=== PATIENT | female | born 1990 | race Two or more races ===

== ENCOUNTER 2016-06-27 11:13 | Inpatient (IN) | payer OTHER ==
[2016-06-27 12:20] VITALS: BMI 24.7
--- NOTE | 2016-06-27 15:55 | HP ---
COWS - Scale Resting Pulse: 1= [place] [id number] Sweatin=Flushed/Facial Moisture Restless Observation: 1= Difficult to Sit Still Pupil Size: 0= Normal to Room Light Bone or Joint Aches: 2= Severe Diffuse Aches Runny Nose/ Eye Tearin= Runny Nose/Eyes GI Upset > 30mins: 2= Nausea/Diarrhea Tremor Observation: 2= Slight Tremor Visible Yawning Observation: 2= >3x During Session Anxiety or Irritability: 2=Irritable/Anxious Goose Flesh Skin: 3=Piloerection COWS Score: 19 Admission ROS BHS - HPI Chief Complaint: I want to get cleaned and focus on my life and stay sober. Allergies/Adverse Reactions: Allergies Allergy/AdvReac Type Severity Reaction Status Date / Time No Known Allergies Allergy Verified 06/27/16 15:44 History of Present Illness: Pt is a25yr old female with a history of opiate dependence seeking detox for treatment. Exam Limitations: No Limitations - Ebola screening Have you traveled outside of the country in the last 21 days: No Have you had contact with anyone from an Ebola affected area: No Have you been sick,other than usual withdrawal symptoms: No Do you have a fever: No - Review of Systems Constitutional: Chills, Diaphoresis, Loss of Appetite, Night Sweats, Changes in sleep EENT: reports: Tearing, Nose Congestion Respiratory: reports: No Symptoms reported Cardiac: reports: No Symptoms Reported GI: reports: Diarrhea, Poor Appetite : reports: No Symptoms Reported Musculoskeletal: reports: Back Pain, Muscle Weakness Integumentary: reports: Flushing, Sweating Neuro: reports: Headache, Tingling, Tremors Endocrine: reports: Flushing, Intolerance to Heat Hematology: reports: No Symptoms Reported Psychiatric: reports: Judgement Intact, Mood/Affect Appropiate, Orientated x3, Agitated, Anxious, Depressed Other Systems: Reviewed and Negative Patient History - Patient Medical History Hx Anemia: No Hx Asthma: No Hx Chronic Obstructive Pulmonary Disease (COPD): No Hx Cancer: No Hx Cardiac Disorders: No Hx Congestive Heart Failure: No Hx Hypertension: No Hx Hypercholesterolemia: No Hx Pacemaker: No HX Cerebrovascular Accident: No Hx Seizures: No Hx Diabetes: No Hx Gastrointestinal Disorders: No Hx Liver Disease: No Hx Genitourinary Disorders: No Hx Sexually Transmitted Disorders: No Hx Renal Disease (ESRD): No Hx Thyroid Disease: No Hx Human Immunodeficiency Virus (HIV): No (negative) Hx Hepatitis C: No (negative) Hx Depression: Yes (ANXIETY) Hx Suicide Attempt: No Hx Bipolar Disorder: No Hx Schizophrenia: No - Patient Surgical History Past Surgical History: No Hx Neurologic Surgery: No Hx Cataract Extraction: No Hx Cardiac Surgery: No Hx Lung Surgery: No Hx Breast Surgery: No Hx Breast Biopsy: No Hx Abdominal Surgery: No Hx Appendectomy: No Hx Cholecystectomy: No Hx Genitourinary Surgery: No Hx Section: No Hx Orthopedic Surgery: No Hx Hysterectomy: No Anesthesia Reaction: No - PPD History Date: 04/11/15 PPD to be Administered?: Yes - Reproductive History Patient is a Female of Child Bearing Age (11 -55 yrs old): Yes Last Menstrual Period: 06/20/16 Patient : No - Smoking Cessation Smoking history: Current every day smoker Have you smoked in the past 12 months: Yes Aproximately how many cigarettes per day: 4 Hx Chewing Tobacco Use: No Initiated information on smoking cessation: Yes 'Breaking Loose' booklet given: 06/27/16 - Substance & Tx. History Hx Alcohol Use: No Hx Substance Use: Yes Substance Use Type: Opiates Hx Substance Use Treatment: Yes - Substances Abused Percocet Route: Oral Frequency: Daily Amount used: 7 tabs. (10 mg.) Age of first use: 23 Date of Last Use: 06/26/16 Family Disease History - Family Disease History Family Disease History: Heart Disease: Father (POSSIBLE), Mother (UNCERTAIN) Admission Physical Exam BHS - Vital Signs Vital Signs: Vital Signs - 24 hr 06/27/16 12:19 Temperature 99.9 F H Pulse Rate 83 Respiratory 16 Rate Blood Pressure 126/71 - Physical General Appearance: Yes: Appropriately Dressed, Tremorous, Irritable, Sweating, Anxious HEENTM: Yes: Normal Voice, Nasal Congestion, Rhinorrhea Respiratory: Yes: Lungs Clear, Normal Breath Sounds, No Respiratory Distress Neck: Yes: No masses,lesions,Nodules Breast: Yes: Within Normal Limits Cardiology: Yes: Regular Rhythm, Regular Rate, S1, S2 Abdominal: Yes: Normal Bowel Sounds Genitourinary: Yes: Within Normal Limits Back: Yes: Normal Inspection Musculoskeletal: Yes: full range of Motion, Back pain Extremities: Yes: Normal Capillary Refill, Non-Tender, Tremors 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: Fully Oriented, Alert, Normal Response Integumentary: Yes: Normal Color, Diaphoresis Lymphatic: Yes: Within Normal Limits - Diagnostic (1) Opioid dependence with withdrawal Current Visit: Yes Status: Chronic (2) Nicotine dependence Current Visit: Yes Status: Chronic Qualifiers: Nicotine product type: cigarettes Substance use status: uncomplicated Qualified Code(s): F17.210 - Nicotine dependence, cigarettes, uncomplicated (3) Substance-induced anxiety disorder Current Visit: Yes Status: Chronic (4) Drug-induced mood disorder Current Visit: No Status: Suspected Cleared for Admission [facility] - Detox or Rehab [facility] Level of Care: Medically Managed Detox Regimen/Protocol: Methadone [facility] Breath Alcohol Content Breath Alcohol Content: 0 Urine Pregancy Test - Result Urine Test Results: Negative- NO Line Present Urine Drug Screen - Results Drug Screen Negative: No Urine Drug Screen Results: OXY-Oxycodone
[2016-06-27] MEDS ORDERED: guaiFENesin/D-METHORPHAN HB 10 ML UNIT-DOSE CUPS PO PRN (16:00)
[2016-06-27] MEDS ORDERED: P-EPHED 60MG/TRIPROLIDI 2.5MG TABLET PO PRN (16:00)
[2016-06-27] MEDS ORDERED: IBUPROFEN 400 MG TABLET (FP) PO PRN (16:00)
[2016-06-27] MEDS ORDERED: LOPERAMIDE HCL 2 MG CAPSULE PO PRN (16:00)
[2016-06-27] MEDS ORDERED: ACETAMINOPHEN 325 MG TABLET (FP) PO PRN (16:00)
[2016-06-27] MEDS ORDERED: METHADONE HCL 10 MG TABLET (FOR DETOX USE ONLY) PO ONE ×2 (16:00→23:00)
[2016-06-27] MEDS ORDERED: MENTHOL/PHENOL 1 EACH UD MM PRN (16:00)
[2016-06-27] MEDS ORDERED: MAG HYDROX/AL HYDROX/SIMETH 30 ML UNIT-DOSE CUP PO PRN (16:00)
[2016-06-27] MEDS ORDERED: MAGNESIUM HYDROX 2400MG/30ML ORAL SUSPENSION 30 ML CUP PO PRN (16:00)
[2016-06-27] MEDS ORDERED: MAGNESIUM CITRATE 300 ML BOTTLE PO PRN (16:00)
[2016-06-27] MEDS ORDERED: METHADONE HCL 10 MG TABLET (FOR DETOX USE ONLY) ONE (18:05)
[2016-06-27] MEDS: diazePAM 5 MG TABLET PO PRN ×2 (18:56→23:18)
[2016-06-27] MEDS: THIAMINE HCL 100 MG TABLET (FP) PO SCH (22:24)
[2016-06-27] MEDS: diphenhydrAMINE HCL 50 MG CAPSULE PO PRN (22:24)
[2016-06-27 23:23] LABS: URINE APPEARANCE CLEAR; URINE BILIRUBIN NEGATIVE (NEGATIVE); URINE BLOOD 2+ (NEGATIVE); URINE COLOR YELLOW; URINE GLUCOSE (UA) NEGATIVE (NEGATIVE); URINE KETONE NEGATIVE (NEGATIVE); URINE LEUK ESTERASE NEGATIVE (NEGATIVE); URINE NITRITE NEGATIVE (NEGATIVE); URINE PROTEIN NEGATIVE (NEGATIVE); URINE UROBILINOGEN NEGATIVE E.U./dl (0.2-1.0)
[2016-06-27 23:27] LABS: URINE MUCUS RARE; URINE RBC 23 /hpf (0-3); URINE WBC 4 /hpf (3-5)
[2016-06-28] MEDS: diazePAM 5 MG TABLET PO PRN ×2 (07:18→19:44)
[2016-06-28] MEDS ORDERED: METHADONE HCL 10 MG TABLET (FOR DETOX USE ONLY) PO ONE (10:00)
[2016-06-28] MEDS: PRENATAL VITAMINS W/ FOLIC ACID TABLET (FP) PO SCH (10:16)
[2016-06-28] MEDS: ASPIRIN 81 MG CHEWABLE TABLETS PO SCH (10:17)
[2016-06-28] MEDS: hydrOXYzine PAMOATE 50 MG CAPSULE (FP) PO PRN (10:18)
--- NOTE | 2016-06-28 10:24 | PN ---
BHS COWS - Scale Resting Pulse: 0= [place] 80 or Below Sweatin= Chills/Flushing Restless Observation: 3= Extraneous Movement Pupil Size: 1= Pupils >than Normal Bone or Joint Aches: 2= Severe Diffuse Aches Runny Nose/ Eye Tearin= Runny Nose/Eyes GI Upset > 30mins: 3= Vomiting/Diarrhea Tremor Observation of Outstretched Hands: 2= Slight Tremor Visible Yawning Observation: 1= 1-2x During Session Anxiety or Irritability: 2=Irritable/Anxious Goose Flesh Skin: 0=Smooth Skin COWS Score: 17 BHS Progress Note (SOAP) Subjective: ALERT,IRRITABLE,ANXIOUS,PAIN IN THE BODY AND BACK,TREMOR Objective: 06/28/16 10:21 Vital Signs Temperature 98.2 F 06/28/16 10:19 Pulse Rate 72 06/28/16 10:19 Respiratory Rate 16 06/28/16 10:19 Blood Pressure 130/69 06/28/16 10:19 O2 Sat by Pulse Oximetry (%) EKG NSR WITH SINUS ARRHYTHMIA INVERTED T IN V2 NO CHEST PAIN,NO SOB,NO DIZZINESS Laboratory Last Values Urine Color Yellow 06/27/16 21:23 Urine Appearance Clear 06/27/16 21:23 Urine pH 5.0 (5.0-8.0) 06/27/16 21:23 Ur Specific [place] 1.023 (1.001-1.035) 06/27/16 21:23 Urine Protein Negative (NEGATIVE) 06/27/16 21:23 Urine Glucose (UA) Negative (NEGATIVE) 06/27/16 21:23 Urine Ketones Negative (NEGATIVE) 06/27/16 21:23 Urine Blood 2+ (NEGATIVE) H 06/27/16 21:23 Urine Nitrite Negative (NEGATIVE) 06/27/16 21:23 Urine Bilirubin Negative (NEGATIVE) 06/27/16 21:23 Urine Urobilinogen Negative E.U./dl (0.2-1.0) 06/27/16 21:23 Ur Leukocyte Esterase Negative (NEGATIVE) 06/27/16 21:23 Urine RBC 23 /hpf (0-3) 06/27/16 21:23 Urine WBC 4 /hpf (3-5) 06/27/16 21:23 Ur Epithelial Cells Moderate /hpf (FEW) 06/27/16 21:23 Urine Mucus Rare 06/27/16 21:23 LABS PENDING Assessment: 06/28/16 10:23 WITHDRAWAL SYMPTOM Plan: CONTINUE DETOX,REPEAT UA
[2016-06-28] MEDS: cloNIDine HCL 0.1 MG TABLET PO SCH ×2 (10:59→22:09)
[2016-06-28] MEDS: CYCLOBENZAPRINE HCL 10 MG TABLET (FP) PO PRN (10:59)
[2016-06-28 11:12] LABS: ALBUMIN 4.3 g/dl (3.4-5.0); ANION GAP 8 (8-16); CALCIUM 9.2 mg/dL (8.5-10.1); CO2 28 mmol/L (21-32); GLUCOSE,RANDOM 86 mg/dL (74-106); MCHC 31.5 g/dl (32.0-36.0); MEAN CELL VOLUME 85.8 fl (80-96); MEAN PLT VOLUME 10.2 fl (7.5-11.1); PLATELET COUNT 212 K/MM3 (134-434); RDW 14.8 % (11.6-15.6); WHITE BLOOD COUNT 7.1 K/mm3 (4.0-10.0)
[2016-06-28 11:16] LABS: ALK PHOS 83 U/L (45-117); BILIRUBIN,TOTAL 0.3 mg/dL (0.2-1.0); CREATININE 0.8 mg/dL (0.55-1.02); SGOT/AST 14 U/L (15-37); SGPT/ALT 18 U/L (12-78); TOT PROT 7.7 g/dl (6.4-8.2)
[2016-06-28 12:26] LABS: HIV 1 & 2 AB NEGATIVE; HIV 1 AGp24 NEGATIVE
--- NOTE | 2016-06-28 14:50 | CONSULT ---
[facility] Psychiatric Consult - Data Date of interview: 06/28/16 Admission source: [facility] Identifying data: Readmission to [facility] for this 25 y/o AA female,from [place] descent,seeking detox treatment,on ,for opiate dependence.Patient is single without children,domiciled,currently unemployed and supported by relatives. Substance Abuse History: - Smoking Cessation. Smoking history: Current every day smoker. Have you smoked in the past 12 months: Yes. Aproximately how many cigarettes per day: 4. Hx Chewing Tobacco Use: No. Initiated information on smoking cessation: Yes. 'Breaking Loose' booklet given: 06/27/16. - Substance & Tx. History. Hx Alcohol Use: No. Hx Substance Use: Yes. Substance Use Type : Opiates. Hx Substance Use Treatment: Yes. - Substances Abused. Percocet. Route: Oral. Frequency: Daily. Amount used: 7 tabs. (10 mg.). Age of first use: 23. Date of Last Use: 06/26/16. Confirmed by patient. Medical History: Patient reports good physical health. Psychiatric History: No history of psychiatric hospitalizations.Ms Rosario states that she is diagnosed with MDD and Anxiety Disorder.Prescribed seroquel 50 mg/ am + 100 mg/hs + ambien 10 mg/hs by a private psychiatrist.Reportedly took these medications on 06/26/16.Patient denies history of suicide attempts. Physical/Sexual Abuse/Trauma History: No history. Additional Comment: Urine Drug Screen Results: OXY-Oxycodone.Noted. Mental Status Exam - Mental Status Exam Alert and Oriented to: Time, Place, Person Cognitive Function: Good Patient Appearance: Well Groomed Mood: Hopeful, Euthymic Affect: Appropriate, Normal Range Patient Behavior: Fatigued, Appropriate, Cooperative Speech Pattern: Clear Voice Loudness: Normal Thought Process: Intact, Goal Oriented Thought Disorder: Not Present Hallucinations: Denies Suicidal Ideation: Denies Homicidal Ideation: Denies Insight/Judgement: Fair Sleep: Poorly, Difficulty falling asleep Appetite: Good Muscle strength/Tone: Normal Gait/Station: Normal Psychiatric Findings - Problem List ([place] 1, 2,3) (1) Opioid dependence with withdrawal Current Visit: Yes Status: Acute (2) Nicotine dependence Current Visit: Yes Status: Acute Qualifiers: Nicotine product type: cigarettes Substance use status: uncomplicated Qualified Code(s): F17.210 - Nicotine dependence, cigarettes, uncomplicated (3) Mood disorder Current Visit: Yes Status: Chronic (4) Insomnia Current Visit: Yes Status: Acute - Initial Treatment Plan Initial Treatment Plan: Psychoeducation.Detoxification.Medications : seroquel 100 mg po hs.Side effects/benefits discussed with patient.She insists on resuming seroquel because of consistent efficacy/tolerability.Observation.
[2016-06-28 16:36] LABS: URINE APPEARANCE CLEAR; URINE BILIRUBIN NEGATIVE (NEGATIVE); URINE BLOOD NEGATIVE (NEGATIVE); URINE COLOR YELLOW; URINE GLUCOSE (UA) NEGATIVE (NEGATIVE); URINE KETONE NEGATIVE (NEGATIVE); URINE LEUK ESTERASE NEGATIVE (NEGATIVE); URINE NITRITE NEGATIVE (NEGATIVE); URINE PROTEIN NEGATIVE (NEGATIVE); URINE UROBILINOGEN NEGATIVE E.U./dl (0.2-1.0)
[2016-06-28] MEDS: QUEtiapine FUMARATE 100 MG TABLET (FP) PO SCH (22:09)
[2016-06-28] MEDS: THIAMINE HCL 100 MG TABLET (FP) PO SCH (22:09)
[2016-06-29] MEDS ORDERED: METHADONE HCL 5 MG TABLET (FOR DETOX USE ONLY) PO ONE (10:00)
[2016-06-29] MEDS: PRENATAL VITAMINS W/ FOLIC ACID TABLET (FP) PO SCH (10:05)
[2016-06-29] MEDS: ASPIRIN 81 MG CHEWABLE TABLETS PO SCH (10:05)
[2016-06-29] MEDS: diazePAM 5 MG TABLET PO PRN ×4 (10:06→23:48)
[2016-06-29] MEDS: CYCLOBENZAPRINE HCL 10 MG TABLET (FP) PO PRN ×2 (10:07→22:25)
[2016-06-29] MEDS: cloNIDine HCL 0.1 MG TABLET PO SCH ×2 (10:07→22:23)
--- NOTE | 2016-06-29 11:08 | PN ---
BHS COWS - Scale Resting Pulse: 1= [place] 81-100 Sweatin=Flushed/Facial Moisture Restless Observation: 3= Extraneous Movement Pupil Size: 1= Pupils >than Normal Bone or Joint Aches: 2= Severe Diffuse Aches Runny Nose/ Eye Tearin= Nasal Congestion GI Upset > 30mins: 2= Nausea/Diarrhea Tremor Observation of Outstretched Hands: 2= Slight Tremor Visible Yawning Observation: 1= 1-2x During Session Anxiety or Irritability: 2=Irritable/Anxious Goose Flesh Skin: 0=Smooth Skin COWS Score: 17 BHS Progress Note (SOAP) Subjective: ALERT,IRRITABLE,ANXIOUS,INTERRUPTED SLEEP,TREMOR,PAIN IN THE BODY AND BACK Objective: 06/29/16 11:06 Vital Signs Temperature 97.6 F 06/29/16 10:08 Pulse Rate 90 06/29/16 10:08 Respiratory Rate 4 L 06/29/16 10:08 Blood Pressure 131/62 06/29/16 10:08 O2 Sat by Pulse Oximetry (%) Laboratory Last Values WBC 7.1 K/mm3 (4.0-10.0) D 06/28/16 06:05 RBC 4.82 M/mm3 (3.60-5.2) 06/28/16 06:05 Hgb 13.0 GM/dL (10.7-15.3) D 06/28/16 06:05 Hct 41.4 % (32.4-45.2) D 06/28/16 06:05 MCV 85.8 fl (80-96) 06/28/16 06:05 MCHC 31.5 g/dl (32.0-36.0) L 06/28/16 06:05 RDW 14.8 % (11.6-15.6) 06/28/16 06:05 Plt Count 212 K/MM3 (134-434) 06/28/16 06:05 MPV 10.2 fl (7.5-11.1) 06/28/16 06:05 Sodium 142 mmol/L (136-145) 06/28/16 06:05 Potassium 4.3 mmol/L (3.5-5.1) 06/28/16 06:05 Chloride 106 mmol/L (98-107) 06/28/16 06:05 Carbon Dioxide 28 mmol/L (21-32) 06/28/16 06:05 Anion Gap 8 (8-16) 06/28/16 06:05 BUN 11 mg/dL (7-18) D 06/28/16 06:05 Creatinine 0.8 mg/dL (0.55-1.02) 06/28/16 06:05 Creat Clearance w eGFR > 60 (>60) 06/28/16 06:05 Random Glucose 86 mg/dL (74-106) 06/28/16 06:05 Calcium 9.2 mg/dL (8.5-10.1) 06/28/16 06:05 Total Bilirubin 0.3 mg/dL (0.2-1.0) D 06/28/16 06:05 AST 14 U/L (15-37) L D 06/28/16 06:05 ALT 18 U/L (12-78) 06/28/16 06:05 Alkaline Phosphatase 83 U/L (45-117) 06/28/16 06:05 Total Protein 7.7 g/dl (6.4-8.2) 06/28/16 06:05 Albumin 4.3 g/dl (3.4-5.0) D 06/28/16 06:05 Urine Color Yellow 06/28/16 Unknown Urine Appearance Clear 06/28/16 Unknown Urine pH 6.0 (5.0-8.0) 06/28/16 Unknown Ur Specific [place] 1.025 (1.001-1.035) 06/28/16 Unknown Urine Protein Negative (NEGATIVE) 06/28/16 Unknown Urine Glucose (UA) Negative (NEGATIVE) 06/28/16 Unknown Urine Ketones Negative (NEGATIVE) 06/28/16 Unknown Urine Blood Negative (NEGATIVE) 06/28/16 Unknown Urine Nitrite Negative (NEGATIVE) 06/28/16 Unknown Urine Bilirubin Negative (NEGATIVE) 06/28/16 Unknown Urine Urobilinogen Negative E.U./dl (0.2-1.0) 06/28/16 Unknown Ur Leukocyte Esterase Negative (NEGATIVE) 06/28/16 Unknown Urine RBC 23 /hpf (0-3) 06/27/16 21:23 Urine WBC 4 /hpf (3-5) 06/27/16 21:23 Ur Epithelial Cells Moderate /hpf (FEW) 06/27/16 21:23 Urine Mucus Rare 06/27/16 21:23 RPR Titer Nonreactive (NONREACTIVE) 06/28/16 06:05 HIV 1&2 Antibody Screen Negative 06/28/16 07:40 HIV P24 Antigen Negative 06/28/16 07:40 06/29/16 11:07 Laboratory Results - last 24 hr 06/28/16 06/28/16 06/28/16 06:05 06:05 06:05 WBC 7.1 D RBC 4.82 Hgb 13.0 D Hct 41.4 D MCV 85.8 MCHC 31.5 L RDW 14.8 Plt Count 212 MPV 10.2 Sodium 142 Potassium 4.3 Chloride 106 Carbon Dioxide 28 Anion Gap 8 BUN 11 D Creatinine 0.8 Creat Clearance w eGFR > 60 Random Glucose 86 Calcium 9.2 Total Bilirubin 0.3 D AST 14 L D ALT 18 Alkaline Phosphatase 83 Total Protein 7.7 Albumin 4.3 D Urine Color Urine Appearance Urine pH Ur Specific [place] Urine Protein Urine Glucose (UA) Urine Ketones Urine Blood Urine Nitrite Urine Bilirubin Urine Urobilinogen Ur Leukocyte Esterase RPR Titer Nonreactive HIV 1&2 Antibody Screen HIV P24 Antigen 06/28/16 06/28/16 07:40 Unknown WBC RBC Hgb Hct MCV MCHC RDW Plt Count MPV Sodium Potassium Chloride Carbon Dioxide Anion Gap BUN Creatinine Creat Clearance w eGFR Random Glucose Calcium Total Bilirubin AST ALT Alkaline Phosphatase Total Protein Albumin Urine Color Yellow Urine Appearance Clear Urine pH 6.0 Ur Specific [place] 1.025 Urine Protein Negative Urine Glucose (UA) Negative Urine Ketones Negative Urine Blood Negative Urine Nitrite Negative Urine Bilirubin Negative Urine Urobilinogen Negative Ur Leukocyte Esterase Negative RPR Titer HIV 1&2 Antibody Screen Negative HIV P24 Antigen Negative Assessment: 06/29/16 11:08 WITHDRAWAL SYMPTOM Plan: CONTINUE DETOX
[2016-06-29] MEDS: THIAMINE HCL 100 MG TABLET (FP) PO SCH (22:23)
[2016-06-29] MEDS: QUEtiapine FUMARATE 100 MG TABLET (FP) PO SCH (22:23)
--- NOTE | 2016-06-30 00:14 | EKG ---
Test Reason : Blood Pressure : / mmHG Vent. Rate : 073 BPM Atrial Rate : 073 BPM P-R Int : 140 ms QRS Dur : 082 ms QT Int : 396 ms P-R-T Axes : 059 086 041 degrees QTc Int : 436 ms NORMAL SINUS RHYTHM WITH SINUS ARRHYTHMIA POSSIBLE LEFT ATRIAL ENLARGEMENT NONSPECIFIC T WAVE ABNORMALITY ABNORMAL ECG NO PREVIOUS ECGS AVAILABLE Confirmed by JEREMIAH RUDOLPH MD ([id number]) on 06/30/2016 12:14:05 AM Referred By: Confirmed By:JEREMIAH RUDOLPH MD
[2016-06-30] MEDS ORDERED: METHADONE HCL 5 MG TABLET (FOR DETOX USE ONLY) PO ONE (10:00)
[2016-06-30] MEDS: PRENATAL VITAMINS W/ FOLIC ACID TABLET (FP) PO SCH (10:09)
[2016-06-30] MEDS: ASPIRIN 81 MG CHEWABLE TABLETS PO SCH (10:09)
[2016-06-30] MEDS: cloNIDine HCL 0.1 MG TABLET PO SCH ×2 (10:09→22:12)
[2016-06-30] MEDS: CYCLOBENZAPRINE HCL 10 MG TABLET (FP) PO PRN ×2 (10:12→22:14)
[2016-06-30] MEDS: diazePAM 5 MG TABLET PO PRN (10:12)
--- NOTE | 2016-06-30 10:57 | PN ---
BHS COWS - Scale Resting Pulse: 0= [place] 80 or Below Sweatin=Flushed/Facial Moisture Restless Observation: 1= Difficult to Sit Still Pupil Size: 1= Pupils >than Normal Bone or Joint Aches: 2= Severe Diffuse Aches Runny Nose/ Eye Tearin= Nasal Congestion GI Upset > 30mins: 1= Stomach Cramp Tremor Observation of Outstretched Hands: 2= Slight Tremor Visible Yawning Observation: 0= None Anxiety or Irritability: 2=Irritable/Anxious Goose Flesh Skin: 0=Smooth Skin COWS Score: 12 BHS Progress Note (SOAP) Subjective: interrupted sleep, sweats fatigue, bodyaches Objective: 06/30/16 10:55 Vital Signs Temperature 98.1 F 06/30/16 10:23 Pulse Rate 85 06/30/16 10:23 Respiratory Rate 20 06/30/16 10:23 Blood Pressure 119/63 06/30/16 10:23 O2 Sat by Pulse Oximetry (%) Laboratory Last Values WBC 7.1 K/mm3 (4.0-10.0) D 06/28/16 06:05 RBC 4.82 M/mm3 (3.60-5.2) 06/28/16 06:05 Hgb 13.0 GM/dL (10.7-15.3) D 06/28/16 06:05 Hct 41.4 % (32.4-45.2) D 06/28/16 06:05 MCV 85.8 fl (80-96) 06/28/16 06:05 MCHC 31.5 g/dl (32.0-36.0) L 06/28/16 06:05 RDW 14.8 % (11.6-15.6) 06/28/16 06:05 Plt Count 212 K/MM3 (134-434) 06/28/16 06:05 MPV 10.2 fl (7.5-11.1) 06/28/16 06:05 Sodium 142 mmol/L (136-145) 06/28/16 06:05 Potassium 4.3 mmol/L (3.5-5.1) 06/28/16 06:05 Chloride 106 mmol/L (98-107) 06/28/16 06:05 Carbon Dioxide 28 mmol/L (21-32) 06/28/16 06:05 Anion Gap 8 (8-16) 06/28/16 06:05 BUN 11 mg/dL (7-18) D 06/28/16 06:05 Creatinine 0.8 mg/dL (0.55-1.02) 06/28/16 06:05 Creat Clearance w eGFR > 60 (>60) 06/28/16 06:05 Random Glucose 86 mg/dL (74-106) 06/28/16 06:05 Calcium 9.2 mg/dL (8.5-10.1) 06/28/16 06:05 Total Bilirubin 0.3 mg/dL (0.2-1.0) D 06/28/16 06:05 AST 14 U/L (15-37) L D 06/28/16 06:05 ALT 18 U/L (12-78) 06/28/16 06:05 Alkaline Phosphatase 83 U/L (45-117) 06/28/16 06:05 Total Protein 7.7 g/dl (6.4-8.2) 06/28/16 06:05 Albumin 4.3 g/dl (3.4-5.0) D 06/28/16 06:05 Urine Color Yellow 06/28/16 Unknown Urine Appearance Clear 06/28/16 Unknown Urine pH 6.0 (5.0-8.0) 06/28/16 Unknown Ur Specific [place] 1.025 (1.001-1.035) 06/28/16 Unknown Urine Protein Negative (NEGATIVE) 06/28/16 Unknown Urine Glucose (UA) Negative (NEGATIVE) 06/28/16 Unknown Urine Ketones Negative (NEGATIVE) 06/28/16 Unknown Urine Blood Negative (NEGATIVE) 06/28/16 Unknown Urine Nitrite Negative (NEGATIVE) 06/28/16 Unknown Urine Bilirubin Negative (NEGATIVE) 06/28/16 Unknown Urine Urobilinogen Negative E.U./dl (0.2-1.0) 06/28/16 Unknown Ur Leukocyte Esterase Negative (NEGATIVE) 06/28/16 Unknown Urine RBC 23 /hpf (0-3) 06/27/16 21:23 Urine WBC 4 /hpf (3-5) 06/27/16 21:23 Ur Epithelial Cells Moderate /hpf (FEW) 06/27/16 21:23 Urine Mucus Rare 06/27/16 21:23 RPR Titer Nonreactive (NONREACTIVE) 06/28/16 06:05 HIV 1&2 Antibody Screen Negative 06/28/16 07:40 HIV P24 Antigen Negative 06/28/16 07:40 pt aox3 in nad ambulating Assessment: 06/30/16 10:56 withdrawal sx;s Plan: cont. detox increase fluids motrin prn
[2016-06-30] MEDS: hydrOXYzine PAMOATE 50 MG CAPSULE (FP) PO PRN (12:54)
[2016-06-30] MEDS: THIAMINE HCL 100 MG TABLET (FP) PO SCH (22:12)
[2016-06-30] MEDS: QUEtiapine FUMARATE 100 MG TABLET (FP) PO SCH (22:12)
[2016-06-30] MEDS: diphenhydrAMINE HCL 50 MG CAPSULE PO PRN (22:14)
[2016-07-01] MEDS: hydrOXYzine PAMOATE 50 MG CAPSULE (FP) PO PRN ×2 (00:34→10:16)
[2016-07-01] MEDS ORDERED: METHADONE HCL 10 MG TABLET (FOR DETOX USE ONLY) PO ONE (10:00)
[2016-07-01] MEDS: PRENATAL VITAMINS W/ FOLIC ACID TABLET (FP) PO SCH (10:13)
[2016-07-01] MEDS: cloNIDine HCL 0.1 MG TABLET PO SCH ×2 (10:13→22:19)
[2016-07-01] MEDS: ASPIRIN 81 MG CHEWABLE TABLETS PO SCH (10:13)
[2016-07-01] MEDS: CYCLOBENZAPRINE HCL 10 MG TABLET (FP) PO PRN (10:16)
--- NOTE | 2016-07-01 10:30 | PN ---
BHS Progress Note (SOAP) Subjective: sweats Objective: 07/01/16 10:27 Vital Signs Temperature 98.1 F 07/01/16 09:32 Pulse Rate 97 H 07/01/16 09:32 Respiratory Rate 16 07/01/16 09:32 Blood Pressure 100/68 07/01/16 09:32 O2 Sat by Pulse Oximetry (%) awake/alert ambulating no acute distress Assessment: 07/01/16 10:29 withdrawal sx Plan: continue detox increase fluids d/c in am
[2016-07-01] MEDS: QUEtiapine FUMARATE 100 MG TABLET (FP) PO SCH (22:19)
[2016-07-01] MEDS: THIAMINE HCL 100 MG TABLET (FP) PO SCH (22:19)
[2016-07-01] MEDS: diphenhydrAMINE HCL 50 MG CAPSULE PO PRN (22:20)
[2016-07-02] MEDS: hydrOXYzine PAMOATE 50 MG CAPSULE (FP) PO PRN (01:03)
[2016-07-02] MEDS: CYCLOBENZAPRINE HCL 10 MG TABLET (FP) PO PRN (05:39)
[2016-07-02] MEDS ORDERED: METHADONE HCL 5 MG TABLET (FOR DETOX USE ONLY) PO ONE (06:00)
--- NOTE | 2016-07-02 08:42 | DS ---
[facility] Detox Discharge Summary Admission Date: 06/27/16 Discharge Date: 07/02/16 - History Present History: Opioid Dependence - Physical Exam Results Vital Signs: Vital Signs Temperature 97.7 F 07/02/16 06:53 Pulse Rate 87 07/02/16 06:53 Respiratory Rate 18 07/02/16 06:53 Blood Pressure 132/84 07/02/16 06:53 O2 Sat by Pulse Oximetry (%) - Treatment Hospital Course: Detox Protocol Followed, Detoxed Safely, Responded well, Discharged Condition Good, Rehab Referral Accepted - Medication Discharge Medications: Ambulatory Orders Quetiapine Fumarate [Seroquel -] 50 mg PO BID #60 tablet 04/11/15 Quetiapine Fumarate [Seroquel] 100 mg PO HS #30 tablet 06/28/16 - Diagnosis (1) Opioid dependence with withdrawal Current Visit: Yes Status: Chronic (2) Nicotine dependence Current Visit: Yes Status: Chronic Qualifiers: Nicotine product type: cigarettes Substance use status: uncomplicated Qualified Code(s): F17.210 - Nicotine dependence, cigarettes, uncomplicated (3) Substance-induced anxiety disorder Current Visit: Yes Status: Suspected (4) Drug-induced mood disorder Current Visit: Yes Status: Suspected - AMA Did Patient Leave Against Medical Advice: No
[2016-07-02 09:56] VITALS: BP 130/74; PULSE 92; TEMP 98.2
[2016-07-02] MEDS: cloNIDine HCL 0.1 MG TABLET PO SCH (10:42)
[2016-07-02] MEDS: ASPIRIN 81 MG CHEWABLE TABLETS PO SCH (10:42)
[2016-07-02] MEDS: PRENATAL VITAMINS W/ FOLIC ACID TABLET (FP) PO SCH (10:42)
== END 2016-07-02 11:21 | disposition other institution (70) | DRG 773 ==
LOC: YASAS 11:13 → Y6N 16:05
PROVIDERS: ADMIT Internal Medicine; ATTEND Internal Medicine Addiction Medicine
PROC: HZ2ZZZZ Detoxification Services for Substance Abuse Treatment (ICD-10-PCS; principal; 2016-06-27)
DX: F11.23 Opioid dependence with withdrawal (principal); F17.210 Nicotine dependence, cigarettes, uncomplicated; F19.280 Other psychoactive substance dependence with psychoactive substance-induced anxiety disorder; F39 Unspecified mood [affective] disorder; G47.00 Insomnia, unspecified; I49.9 Cardiac arrhythmia, unspecified
CPT/HCPCS: 36415; 80053; 81003; 81015; 85027; 86593; 87389; 93005; 93010

== ENCOUNTER 2016-07-02 11:17 | Inpatient (IN) | payer OTHER ==
[2016-07-02] MEDS ORDERED: PNEUMOC 13-VAL CONJ-DIP CRM/PF 0.5 ML DISP.SYRIN IM ONE (12:03)
[2016-07-02] MEDS ORDERED: NICOTINE POLACRILEX 2 MG GUM BUC PRN (13:53)
[2016-07-02] MEDS ORDERED: P-EPHED 60MG/TRIPROLIDI 2.5MG TABLET PO PRN (13:53)
[2016-07-02] MEDS ORDERED: LOPERAMIDE HCL 2 MG CAPSULE PO PRN (13:53)
[2016-07-02] MEDS ORDERED: MAG HYDROX/AL HYDROX/SIMETH 30 ML UNIT-DOSE CUP PO PRN (13:53)
[2016-07-02] MEDS ORDERED: IBUPROFEN 400 MG TABLET (FP) PO PRN (13:53)
[2016-07-02] MEDS ORDERED: ACETAMINOPHEN 325 MG TABLET (FP) PO PRN (13:53)
[2016-07-02] MEDS ORDERED: diphenhydrAMINE HCL 50 MG CAPSULE PO PRN (13:53)
[2016-07-02] MEDS ORDERED: MAGNESIUM CITRATE 300 ML BOTTLE PO PRN (13:53)
[2016-07-02] MEDS ORDERED: MENTHOL/PHENOL 1 EACH UD MM PRN (13:53)
[2016-07-02] MEDS ORDERED: guaiFENesin/D-METHORPHAN HB 10 ML UNIT-DOSE CUPS PO PRN (13:53)
[2016-07-02] MEDS ORDERED: COLLOIDAL OATMEAL 1 BAR EACH TP PRN (13:55)
--- NOTE | 2016-07-02 13:58 | HP ---
[facility] Rehab Assess/Revision - Admission History Admitted to Rehab from: [facility] [place] Date of Admission to Rehab: 07/02/16 - Vital signs Vital Signs: Vital Signs Period Temp Pulse Resp BP Sys/Acevedo Pulse Ox Last 24 Hr 97.7 F 93 18 127/82 - Findings Detox History & Physical reviewed: Yes Concur with findings: Yes
--- NOTE | 2016-07-02 16:11 | HP ---
Psychiatrist Admission - Data Date of interview: 07/02/16 Admission source: [address] [place] [address] Identifying data: This the first admission to [address] [place] [address] rehabilitation for this 25 years old single female,childless,resides with parents,supported by family,lost her job recently. Medical History: Unremarkable Psychiatric History: Reports being under psychiatric care on and off since 13- 14 years old due to anxiety,depressed mood,insomnia..Patient was on Xanax prn, Ambien for insomnia.She was dx with Mood disorder.She sees psychiatrist in private office in [facility].Current medications:Seroquel 100 mg po hs,Ambien 10 mg po hs. Physical/Sexual Abuse/Trauma History: denies Vital Signs: Vital Signs - 24 hr 07/02/16 11:40 Temperature 97.7 F Pulse Rate 93 H Respiratory 18 Rate Blood Pressure 127/82 Allergies/Adverse Reactions: Allergies Allergy/AdvReac Type Severity Reaction Status Date / Time No Known Allergies Allergy Verified 06/27/16 15:44 Date of last physical exam: 07/02/16 Concur with the findings of this exam: Yes - Substance Abuse/Tx History Hx Alcohol Use: No Hx Substance Use: Yes (reports taking pain killers about 2 years after dental surgery,7 pills shelia) Substance Use Type: Alcohol, Opiates Hx Substance Use Treatment: Yes (this is her first inpatient rehab) - Admission Criteria Previous failed treatment: Yes Poor recovery environment: Yes Comorbidities: Yes Lacks judgement: Yes Mental Status Exam - Mental Status Exam Alert and Oriented to: Time, Place, Person Cognitive Function: Grossly Intact Patient Appearance: Well Groomed Mood: Sad Affect: Mood Congruent Patient Behavior: Cooperative Speech Pattern: Clear Voice Loudness: Normal Thought Process: Goal Oriented Thought Disorder: Not Present Hallucinations: Denies Suicidal Ideation: Denies Homicidal Ideation: Denies Insight/Judgement: Fair Sleep: Difficulty falling asleep Appetite: Good Muscle strength/Tone: Normal Gait/Station: Normal Psychiatric Findings - Problem List ([place] 1, 2,3) (1) Nicotine dependence Current Visit: Yes Status: Chronic Qualifiers: (2) Opioid dependence with withdrawal Current Visit: Yes Status: Chronic (3) Drug-induced mood disorder Current Visit: Yes Status: Chronic - Initial Treatment Plan Initial Treatment Plan: Continue Seroquel 100 mg po hs. Will monitor progress.
[2016-07-02] MEDS: QUEtiapine FUMARATE 100 MG TABLET (FP) PO SCH (21:21)
[2016-07-02] MEDS: hydrOXYzine PAMOATE 50 MG CAPSULE (FP) PO PRN (21:21)
[2016-07-02] MEDS: THIAMINE HCL 100 MG TABLET (FP) PO SCH (21:21)
[2016-07-03] MEDS: PRENATAL VITAMINS W/ FOLIC ACID TABLET (FP) PO SCH (09:56)
[2016-07-03] MEDS: QUEtiapine FUMARATE 25 MG TABLET (FP) PO SCH (09:56)
[2016-07-03] MEDS: CYCLOBENZAPRINE HCL 10 MG TABLET (FP) PO PRN ×2 (09:59→21:27)
[2016-07-03] MEDS: hydrOXYzine PAMOATE 50 MG CAPSULE (FP) PO PRN ×2 (09:59→21:27)
[2016-07-03] MEDS ORDERED: ASPIRIN 81 MG CHEWABLE TABLETS PO SCH (10:00)
[2016-07-03] MEDS ORDERED: PNEUMOCOCCAL 23 VACCINE 0.5 ML VIAL IM ONE (12:00)
[2016-07-03] MEDS: THIAMINE HCL 100 MG TABLET (FP) PO SCH (21:27)
[2016-07-03] MEDS: QUEtiapine FUMARATE 100 MG TABLET (FP) PO SCH (21:27)
[2016-07-04] MEDS: CYCLOBENZAPRINE HCL 10 MG TABLET (FP) PO PRN ×2 (07:12→21:26)
[2016-07-04] MEDS: MAGNESIUM HYDROX 2400MG/30ML ORAL SUSPENSION 30 ML CUP PO PRN (07:12)
[2016-07-04] MEDS: hydrOXYzine PAMOATE 50 MG CAPSULE (FP) PO PRN ×4 (07:12→21:26)
[2016-07-04] MEDS: PRENATAL VITAMINS W/ FOLIC ACID TABLET (FP) PO SCH (10:01)
[2016-07-04] MEDS: QUEtiapine FUMARATE 25 MG TABLET (FP) PO SCH (10:01)
[2016-07-04] MEDS: THIAMINE HCL 100 MG TABLET (FP) PO SCH (21:25)
[2016-07-04] MEDS: QUEtiapine FUMARATE 100 MG TABLET (FP) PO SCH (21:25)
[2016-07-05] MEDS: CYCLOBENZAPRINE HCL 10 MG TABLET (FP) PO PRN ×2 (06:50→18:44)
[2016-07-05] MEDS: hydrOXYzine PAMOATE 50 MG CAPSULE (FP) PO PRN ×3 (06:50→18:44)
[2016-07-05] MEDS: PRENATAL VITAMINS W/ FOLIC ACID TABLET (FP) PO SCH (09:51)
[2016-07-05] MEDS: QUEtiapine FUMARATE 25 MG TABLET (FP) PO SCH (09:51)
[2016-07-05] MEDS: THIAMINE HCL 100 MG TABLET (FP) PO SCH (21:38)
[2016-07-05] MEDS: QUEtiapine FUMARATE 100 MG TABLET (FP) PO SCH (21:38)
[2016-07-06] MEDS: hydrOXYzine PAMOATE 50 MG CAPSULE (FP) PO PRN ×3 (00:30→21:25)
[2016-07-06] MEDS: CYCLOBENZAPRINE HCL 10 MG TABLET (FP) PO PRN ×2 (06:39→21:25)
[2016-07-06] MEDS: MAGNESIUM HYDROX 2400MG/30ML ORAL SUSPENSION 30 ML CUP PO PRN (06:40)
[2016-07-06] MEDS: PRENATAL VITAMINS W/ FOLIC ACID TABLET (FP) PO SCH (10:00)
[2016-07-06] MEDS: QUEtiapine FUMARATE 25 MG TABLET (FP) PO SCH (10:01)
[2016-07-06] MEDS: THIAMINE HCL 100 MG TABLET (FP) PO SCH (21:25)
[2016-07-06] MEDS: QUEtiapine FUMARATE 100 MG TABLET (FP) PO SCH (21:25)
[2016-07-07] MEDS: hydrOXYzine PAMOATE 50 MG CAPSULE (FP) PO PRN ×2 (10:08→14:43)
[2016-07-07] MEDS: PRENATAL VITAMINS W/ FOLIC ACID TABLET (FP) PO SCH (10:08)
[2016-07-07] MEDS: QUEtiapine FUMARATE 25 MG TABLET (FP) PO SCH (10:09)
--- NOTE | 2016-07-07 10:30 | PN ---
Psychiatric Progress Note Vital Signs: Vital Signs Period Temp Pulse Resp BP Sys/Acevedo Pulse Ox Last 24 Hr 98.0 F 84 18-18 124/84 Date of Session: 07/07/16 Chief Complaint:: I need to change Seroquel,it makes me drowsy,nervious and thirsty. HPI: Patient addressed Opioid dependence comorbid with Substance induced mood disorder. ROS: unremarkable. Current Medications: Active Medications Generic Name Dose Route Start Last Admin Trade Name Freq PRN Reason Stop Dose Admin Acetaminophen 650 mg 07/02/16 13:53 Tylenol - PO Q4H PRN FEVER OR PAIN Al Hydroxide/Mg Hydroxide 30 ml 07/02/16 13:53 Mylanta Oral Suspension - PO Q6H PRN DYSPEPSIA Colloidal Oatmeal 1 applic 07/02/16 13:55 07/02/16 14:23 Aveeno Soap - TP 1 bar DAILY PRN Administration HYGEINE Cyclobenzaprine HCl 10 mg 07/02/16 13:55 07/06/16 21:25 Flexeril - PO 10 mg TID PRN Administration MUSCLE SPASMS Diphenhydramine HCl 50 mg 07/02/16 13:53 Benadryl - PO HSMR1 PRN FOR ITCHING Eucalyptus/Menthol/Phenol/Sorbitol 1 each 07/02/16 13:53 Cepastat Lozenge - MM Q4H PRN SORE THROAT Guaifenesin 10 ml 07/02/16 13:53 Robitussin Dm - PO Q6H PRN COUGH Hydroxyzine Pamoate 50 mg 07/02/16 16:21 07/06/16 21:25 Vistaril - PO 50 mg Q4H PRN Administration ANXIETY Ibuprofen 400 mg 07/02/16 13:53 Motrin - PO Q6H PRN PAIN Loperamide HCl 4 mg 07/02/16 13:53 Imodium - PO Q6H PRN DIARRHEA Magnesium Hydroxide 30 ml 07/02/16 13:53 07/06/16 06:40 Milk Of Magnesia - PO 30 ml DAILY PRN Administration CONSTIPATION Nicotine Polacrilex 2 mg 07/02/16 13:53 Nicorette Gum - BUC Q2H PRN NICOTINE REPLACEMENT RX Multivit/Folic Acid/Iron 1 tab 07/03/16 10:00 07/06/16 10:00 Vitamins (Sjr) - PO 1 tab DAILY CARLY Administration Pseudoephedrine/Triprolidine 1 combo 07/02/16 13:53 Actifed - PO TID PRN NASAL CONGESTION Quetiapine Fumarate 25 mg 07/03/16 10:00 07/06/16 10:01 Seroquel - PO 25 mg DAILY CARLY Administration Thiamine HCl 100 mg 07/02/16 22:00 07/06/16 21:25 Vitamin B1 - PO 100 mg HS CARLY Administration Current Side Effect: No Lab tests ordered: No Lab tests reviewed: Yes Provider note:: Chart was revuewed,patient was evaluated .She addressed ongoing sleep difficulties ,side effects from Seroquel.According to her Seroquel makes drowsy and anxious.She reports good response to Trazodone in the past.Properties of Trazodone has been discussed with the patient including side effects,benefits and dose adjustment.D/C Seroquel 200 mg po hs,start Trazodone 150 mg po hs. Supportive therapy provided. Total face to face time:: 30 Mental Status Exam - Mental Status Exam Alert and Oriented to: Time, Place, Person Cognitive Function: Grossly Intact Patient Appearance: Well Groomed Mood: Sad Affect: Labile Patient Behavior: Cooperative Speech Pattern: Clear Voice Loudness: Normal Thought Process: Goal Oriented Thought Disorder: Not Present Hallucinations: Denies Suicidal Ideation: Denies Homicidal Ideation: Denies Insight/Judgement: Fair Sleep: Difficulty falling asleep Appetite: Good Muscle strength/Tone: Normal Gait/Station: Normal Psychiatric Treatment Plan - Problem List (1) Nicotine dependence Current Visit: Yes Qualifiers: (2) Opioid dependence with withdrawal Current Visit: Yes (3) Drug-induced mood disorder Current Visit: Yes
[2016-07-07] MEDS: BISACODYL 5 MG TABLET.DR (FP) PO SCH (14:41)
[2016-07-07] MEDS: THIAMINE HCL 100 MG TABLET (FP) PO SCH (21:18)
[2016-07-07] MEDS: CYCLOBENZAPRINE HCL 10 MG TABLET (FP) PO PRN (21:18)
[2016-07-07] MEDS: traZODone HCL 50 MG TABLET (FP) PO SCH (21:18)
[2016-07-08] MEDS: PRENATAL VITAMINS W/ FOLIC ACID TABLET (FP) PO SCH (10:05)
[2016-07-08] MEDS: BISACODYL 5 MG TABLET.DR (FP) PO SCH (10:05)
[2016-07-08] MEDS: QUEtiapine FUMARATE 25 MG TABLET (FP) PO SCH (10:05)
[2016-07-08] MEDS ORDERED: BISACODYL 5 MG TABLET.DR (FP) PO PRN (14:35)
[2016-07-08] MEDS: CYCLOBENZAPRINE HCL 10 MG TABLET (FP) PO PRN (21:35)
[2016-07-08] MEDS: traZODone HCL 50 MG TABLET (FP) PO SCH (21:35)
[2016-07-08] MEDS: hydrOXYzine PAMOATE 50 MG CAPSULE (FP) PO PRN (21:35)
[2016-07-08] MEDS: THIAMINE HCL 100 MG TABLET (FP) PO SCH (21:35)
[2016-07-09 07:24] VITALS: TEMP 97.9
[2016-07-09 09:46] VITALS: BP 139/85; PULSE 101
[2016-07-09] MEDS: QUEtiapine FUMARATE 25 MG TABLET (FP) PO SCH (09:59)
[2016-07-09] MEDS: PRENATAL VITAMINS W/ FOLIC ACID TABLET (FP) PO SCH (09:59)
--- NOTE | 2016-07-09 16:50 | PN ---
Psychiatric Progress Note Vital Signs: Vital Signs Period Temp Pulse Resp BP Sys/Acevedo Pulse Ox Last 24 Hr 97.9 F 98-101 18 124-139/85-86 Date of Session: 07/09/16 Chief Complaint:: Discharge visit HPI: Patient addressed Opioid dependence comorbid with substance induced mood disorder. ROS: unremarkable Current Medications: Active Medications Generic Name Dose Route Start Last Admin Trade Name Freq PRN Reason Stop Dose Admin Acetaminophen 650 mg 07/02/16 13:53 Tylenol - PO Q4H PRN FEVER OR PAIN Al Hydroxide/Mg Hydroxide 30 ml 07/02/16 13:53 Mylanta Oral Suspension - PO Q6H PRN DYSPEPSIA Bisacodyl 10 mg 07/08/16 14:35 Dulcolax - PO DAILY PRN CONSTIPATION Colloidal Oatmeal 1 applic 07/02/16 13:55 07/02/16 14:23 Aveeno Soap - TP 1 bar DAILY PRN Administration HYGEINE Cyclobenzaprine HCl 10 mg 07/02/16 13:55 07/08/16 21:35 Flexeril - PO 10 mg TID PRN Administration MUSCLE SPASMS Diphenhydramine HCl 50 mg 07/02/16 13:53 07/07/16 21:18 Benadryl - PO 50 mg HSMR1 PRN Administration FOR ITCHING Eucalyptus/Menthol/Phenol/Sorbitol 1 each 07/02/16 13:53 Cepastat Lozenge - MM Q4H PRN SORE THROAT Guaifenesin 10 ml 07/02/16 13:53 Robitussin Dm - PO Q6H PRN COUGH Hydroxyzine Pamoate 50 mg 07/02/16 16:21 07/08/16 21:35 Vistaril - PO 50 mg Q4H PRN Administration ANXIETY Ibuprofen 400 mg 07/02/16 13:53 Motrin - PO Q6H PRN PAIN Loperamide HCl 4 mg 07/02/16 13:53 Imodium - PO Q6H PRN DIARRHEA Magnesium Hydroxide 30 ml 07/02/16 13:53 07/06/16 06:40 Milk Of Magnesia - PO 30 ml DAILY PRN Administration CONSTIPATION Nicotine Polacrilex 2 mg 07/02/16 13:53 Nicorette Gum - BUC Q2H PRN NICOTINE REPLACEMENT RX Multivit/Folic Acid/Iron 1 tab 07/03/16 10:00 07/09/16 09:59 Vitamins (Sjr) - PO 1 tab DAILY CARLY Administration Pseudoephedrine/Triprolidine 1 combo 07/02/16 13:53 Actifed - PO TID PRN NASAL CONGESTION Quetiapine Fumarate 25 mg 07/03/16 10:00 07/09/16 09:59 Seroquel - PO 25 mg DAILY CARLY Administration Thiamine HCl 100 mg 07/02/16 22:00 07/08/16 21:35 Vitamin B1 - PO 100 mg HS CARLY Administration Trazodone HCl 150 mg 07/07/16 22:00 07/08/16 21:35 Desyrel - PO 150 mg HS CARLY Administration Current Side Effect: No Lab tests ordered: No Lab tests reviewed: Yes Provider note:: Patient decided to sign out today AMA since her friend has been discharged today.[employer] and other medical staff made efforts to convince her to continue inpatient treatment but she ignored recommendations.She didnt meet her treatment goals.Patient will continue to address her issues at [facility].She will continue current medications as per plan.Scripts for 30 days provided. Total face to face time:: 30 Mental Status Exam - Mental Status Exam Alert and Oriented to: Time, Place, Person Cognitive Function: Grossly Intact Patient Appearance: Well Groomed Mood: Irritable Affect: Labile Patient Behavior: Uncooperative, Impulsive, Resitive to Care Speech Pattern: Clear Voice Loudness: Normal Thought Process: Goal Oriented Thought Disorder: Not Present Hallucinations: Denies Suicidal Ideation: Denies Homicidal Ideation: Denies Insight/Judgement: Poor Sleep: Fair Appetite: Good Muscle strength/Tone: Normal Gait/Station: Normal Psychiatric Treatment Plan - Problem List (1) Nicotine dependence Current Visit: Yes Qualifiers: (2) Opioid dependence with withdrawal Current Visit: Yes (3) Drug-induced mood disorder Current Visit: Yes
== END 2016-07-09 19:14 | disposition left against medical advice (07) | DRG 770 ==
LOC: YASAS 11:17 → Y3E 11:18
PROVIDERS: ADMIT Psychiatry & Neurology Psychiatry; ATTEND Psychiatry & Neurology Psychiatry
PROC: HZ42ZZZ Group Counseling for Substance Abuse Treatment, Cognitive-Behavioral (ICD-10-PCS; principal; 2016-07-02)
DX: F11.20 Opioid dependence, uncomplicated (principal); F17.210 Nicotine dependence, cigarettes, uncomplicated; F19.24 Other psychoactive substance dependence with psychoactive substance-induced mood disorder
CPT/HCPCS: 90732; G0009

== ENCOUNTER 2018-05-27 11:16 | Inpatient (IN) | payer OTHER ==
[2018-05-27 12:36] VITALS: BMI 24.0
--- NOTE | 2018-05-27 14:52 | HP ---
COWS - Scale Resting Pulse: 1= [place] 81-100 Sweatin=Flushed/Facial Moisture Restless Observation: 1= Difficult to Sit Still Pupil Size: 0= Normal to Room Light Bone or Joint Aches: 2= Severe Diffuse Aches Runny Nose/ Eye Tearin= Runny Nose/Eyes GI Upset > 30mins: 1= Stomach Cramp Tremor Observation: 2= Slight Tremor Visible Yawning Observation: 2= >3x During Session Anxiety or Irritability: 2=Irritable/Anxious Goose Flesh Skin: 0=Smooth Skin COWS Score: 15 CIWA Score - Admission Criteria [facility] Guidelines: Admission for Medically Managed Detox: Requires at least one of the followin. CIWA greater than 12 2. Seizures within the past 24 hours 3. Delirium tremens within the past 24 hours 4. Hallucinations within the past 24 hours 5. Acute intervention needed for co occurring medical disorder 6. Acute intervention needed for co occurring psychiatric disorder 7. Severe withdrawal that cannot be handled at a lower level of care (continued vomiting, continued diarrhea, abnormal vital signs) requiring intravenous medication and/or fluids 8. Admission ROS [facility] Chief Complaint: I was sober for a while and recently relapsed 3months ago. I am now here for detox and sobriety again. Allergies/Adverse Reactions: Allergies Allergy/AdvReac Type Severity Reaction Status Date / Time No Known Allergies Allergy Verified 06/27/16 15:44 History of Present Illness: pt is a 27yrold female with a history of percocet dependence seeking detox for treatment. Pt was sober for about a year and recently relapsed. Pt is here now for treatment. Exam Limitations: No Limitations - Ebola screening Have you traveled outside of the country in the last 21 days: No Have you had contact with anyone from an Ebola affected area: No Have you been sick,other than usual withdrawal symptoms: No - Review of Systems Constitutional: Chills, Diaphoresis, Loss of Appetite, Night Sweats, Changes in sleep EENT: reports: Nose Congestion Respiratory: reports: No Symptoms reported Cardiac: reports: No Symptoms Reported GI: reports: Constipated, Poor Appetite, Poor Fluid Intake : reports: Urgency Musculoskeletal: reports: Back Pain, Joint Pain Integumentary: reports: Flushing, Sweating Neuro: reports: Tingling, Tremors Endocrine: reports: Excessive Sweating, Flushing, Intolerance to Cold, Intolerance to Heat Hematology: reports: No Symptoms Reported Psychiatric: reports: Judgement Intact, Mood/Affect Appropiate, Orientated x3, Agitated, Anxious Other Systems: Reviewed and Negative Patient History - Patient Medical History Hx Anemia: No Hx Asthma: No Hx Chronic Obstructive Pulmonary Disease (COPD): No Hx Cancer: No Hx Cardiac Disorders: No Hx Congestive Heart Failure: No Hx Hypertension: No Hx Hypercholesterolemia: No Hx Pacemaker: No HX Cerebrovascular Accident: No Hx Seizures: No Hx Diabetes: No Hx Gastrointestinal Disorders: No Hx Liver Disease: No Hx Genitourinary Disorders: No Hx Sexually Transmitted Disorders: No Hx Renal Disease (ESRD): No Hx Thyroid Disease: No Hx Human Immunodeficiency Virus (HIV): No (negative) Hx Hepatitis C: No (negative) Hx Depression: No Hx Suicide Attempt: No Hx Bipolar Disorder: No Hx Schizophrenia: No - Patient Surgical History Past Surgical History: No Hx Neurologic Surgery: No Hx Cataract Extraction: No Hx Cardiac Surgery: No Hx Lung Surgery: No Hx Breast Surgery: No Hx Breast Biopsy: No Hx Abdominal Surgery: No Hx Appendectomy: No Hx Cholecystectomy: No Hx Genitourinary Surgery: No Hx Section: No Hx Orthopedic Surgery: No Hx Hysterectomy: No Anesthesia Reaction: No - PPD History Previous Implant?: Yes Documented Results: Negative w/o proof PPD to be Administered?: Yes - Reproductive History Patient is a Female of Child Bearing Age (11 -55 yrs old): Yes Last Menstrual Period: 05/13/18 Patient : No - Smoking Cessation Smoking history: Current every day smoker Have you smoked in the past 12 months: Yes Aproximately how many cigarettes per day: 4 Hx Chewing Tobacco Use: No Initiated information on smoking cessation: Yes 'Breaking Loose' booklet given: 05/27/18 - Substance & Tx. History Hx Alcohol Use: No Hx Substance Use: Yes Substance Use Type: Opiates Hx Substance Use Treatment: Yes (last detox [facility] 2017) - Substances Abused Percocet Route: Oral Frequency: Daily Amount used: 10 pills of 3/325mg Age of first use: 18 Date of Last Use: 05/27/18 Family Disease History - Family Disease History Family Disease History: Heart Disease: Father (POSSIBLE), Mother (UNCERTAIN) Admission Physical Exam BHS - Vital Signs Vital Signs: Vital Signs - 24 hr 05/27/18 12:33 Temperature 98.2 F Pulse Rate 92 H Respiratory 18 Rate Blood Pressure 129/76 - Physical General Appearance: Yes: Appropriately Dressed, Moderate Distress, Tremorous, Irritable, Sweating, Anxious HEENTM: Yes: Hearing grossly Normal, Normal Voice, Nasal Congestion, Rhinorrhea Respiratory: Yes: Lungs Clear, Normal Breath Sounds, No Respiratory Distress Neck: Yes: No masses,lesions,Nodules Breast: Yes: Within Normal Limits Cardiology: Yes: Regular Rhythm, Regular Rate, S1, S2 Abdominal: Yes: Normal Bowel Sounds, Non Tender, Soft Genitourinary: Yes: Within Normal Limits Back: Yes: Normal Inspection Musculoskeletal: Yes: Back pain, Muscle Pain Extremities: Yes: Normal Capillary Refill, Non-Tender, Tremors 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: Fully Oriented, Alert, Normal Response Integumentary: Yes: Normal Color, Diaphoresis Lymphatic: Yes: Within Normal Limits - Diagnostic (1) Insomnia Current Visit: Yes Status: Chronic Qualifiers: Insomnia type: unspecified Qualified Code(s): G47.00 - Insomnia, unspecified (2) Nicotine dependence Current Visit: Yes Status: Chronic Qualifiers: Nicotine product type: cigarettes Substance use status: uncomplicated Qualified Code(s): F17.210 - Nicotine dependence, cigarettes, uncomplicated (3) Opioid dependence with withdrawal Current Visit: Yes Status: Chronic Cleared for Admission [facility] - Detox or Rehab [facility] Level of Care: Medically Managed Detox Regimen/Protocol: Methadone [facility] Breath Alcohol Content Breath Alcohol Content: 0 Urine Pregancy Test - Result Urine Test Results: Negative - NO line present Urine Drug Screen - Results Drug Screen Negative: No Urine Drug Screen Results: OPI-Opiates, BZO-Benzodiazepines, OXY-Oxycodone, BUP- Suboxone Inpatient Rehab Admission - Rehab Decision to Admit Inpatient rehab admission?: No
[2018-05-27] MEDS ORDERED: METHOCARBAMOL 500 MG TABLET PO PRN (14:54)
[2018-05-27] MEDS ORDERED: NICOTINE POLACRILEX 2 MG GUM BUC PRN (14:54)
[2018-05-27] MEDS ORDERED: IBUPROFEN 400 MG TABLET (FP) PO PRN (14:54)
[2018-05-27] MEDS ORDERED: ACETAMINOPHEN 325 MG TABLET (FP) PO PRN ×2 (14:54)
[2018-05-27] MEDS ORDERED: MAGNESIUM CITRATE 300 ML BOTTLE PO PRN (14:54)
[2018-05-27] MEDS ORDERED: MAG HYDROX/AL HYDROX/SIMETH 30 ML UNIT-DOSE CUP PO PRN (14:54)
[2018-05-27] MEDS ORDERED: MAGNESIUM HYDROX 2400MG/30ML ORAL SUSPENSION 30 ML CUP PO PRN (14:54)
[2018-05-27] MEDS ORDERED: MENTHOL/PHENOL 1 EACH UD MM PRN (14:54)
[2018-05-27] MEDS ORDERED: BISMUTH SUBSALICYLATE 524 MG/30 ML UD PO PRN (14:54)
[2018-05-27] MEDS ORDERED: MELATONIN 5 MG TABLETS PO PRN (14:54)
[2018-05-27] MEDS ORDERED: P-EPHED 60MG/TRIPROLIDI 2.5MG TABLET PO PRN (14:54)
[2018-05-27] MEDS ORDERED: ONDANSETRON *ODT* 4 MG TABLET SL PRN (14:54)
[2018-05-27] MEDS ORDERED: METHADONE HCL 10 MG TABLET (FOR DETOX USE ONLY) PO ONE ×2 (17:00→23:00)
[2018-05-27] MEDS: clonazePAM 0.5 MG TABLET PO PRN (18:50)
[2018-05-27] MEDS: THIAMINE HCL 100 MG TABLET (FP) PO SCH (22:10)
[2018-05-27] MEDS: traZODone HCL 50 MG TABLET (FP) PO PRN (22:11)
[2018-05-27] MEDS: cloNIDine HCL 0.1 MG TABLET PO PRN (22:49)
[2018-05-28] MEDS ORDERED: COLLOIDAL OATMEAL 1 BAR EACH TP PRN (09:38)
--- NOTE | 2018-05-28 09:38 | PN ---
BHS COWS - Scale Resting Pulse: 1= [place] 81-100 Sweatin= Chills/Flushing Restless Observation: 1= Difficult to Sit Still Pupil Size: 1= Pupils >than Normal Bone or Joint Aches: 2= Severe Diffuse Aches Runny Nose/ Eye Tearin= Runny Nose/Eyes GI Upset > 30mins: 2= Nausea/Diarrhea Tremor Observation of Outstretched Hands: 2= Slight Tremor Visible Yawning Observation: 1= 1-2x During Session Anxiety or Irritability: 2=Irritable/Anxious Goose Flesh Skin: 0=Smooth Skin COWS Score: 15 BHS Progress Note (SOAP) Subjective: alert,irritable,anxious,interrupted sleep,pain in the body and back,tremor Objective: 05/28/18 09:37 Vital Signs Temperature 97.9 F 05/28/18 06:00 Pulse Rate 76 05/28/18 06:00 Respiratory Rate 18 05/28/18 06:30 Blood Pressure 100/59 L 05/28/18 06:00 O2 Sat by Pulse Oximetry (%) labs pending Assessment: 05/28/18 09:37 withdrawal symptom Plan: continue detox
[2018-05-28] MEDS ORDERED: METHADONE HCL 10 MG TABLET (FOR DETOX USE ONLY) PO ONE (10:00)
[2018-05-28 10:29] LABS: ALBUMIN 3.5 g/dl (3.4-5.0); ALK PHOS 64 U/L (45-117); ANION GAP 4 MMOL/L (8-16); BILIRUBIN,TOTAL 0.3 mg/dL (0.2-1); BLOOD UREA NITROGEN 8 mg/dL (7-18); CALCIUM 8.7 mg/dL (8.5-10.1); CHLORIDE 104 mmol/L (98-107); CO2 30 mmol/L (21-32); CREATININE 0.7 mg/dL (0.55-1.3); GLUCOSE,RANDOM 85 mg/dL (74-106); POTASSIUM 4.2 mmol/L (3.5-5.1); SGOT/AST 11 U/L (15-37); SGPT/ALT 16 U/L (13-61); SODIUM 138 mmol/L (136-145); TOT PROT 6.8 g/dl (6.4-8.2)
[2018-05-28 10:39] LABS: HEMATOCRIT 36.3 % (32.4-45.2); HEMOGLOBIN 11.5 GM/dL (10.7-15.3); MCH 27.4 pg (25.7-33.7); MCHC 31.7 g/dl (32.0-36.0); MEAN CELL VOLUME 86.5 fl (80-96); MEAN PLT VOLUME 9.6 fl (7.5-11.1); PLATELET COUNT 210 K/MM3 (134-434); RDW 15.2 % (11.6-15.6); WHITE BLOOD COUNT 7.7 K/mm3 (4.0-10.0)
[2018-05-28] MEDS: PRENATAL VITAMINS W/ FOLIC ACID TABLET (FP) PO SCH (10:49)
[2018-05-28] MEDS: clonazePAM 0.5 MG TABLET PO PRN ×2 (12:13→22:26)
[2018-05-28] MEDS: THIAMINE HCL 100 MG TABLET (FP) PO SCH (22:23)
[2018-05-28] MEDS: traZODone HCL 50 MG TABLET (FP) PO PRN (22:26)
[2018-05-28] MEDS: cloNIDine HCL 0.1 MG TABLET PO PRN (22:26)
[2018-05-29] MEDS ORDERED: METHADONE HCL 10 MG TABLET (FOR DETOX USE ONLY) PO ONE (10:00)
[2018-05-29] MEDS: hydrOXYzine PAMOATE 25 MG CAPSULE (FP) PO PRN (10:21)
[2018-05-29] MEDS: PRENATAL VITAMINS W/ FOLIC ACID TABLET (FP) PO SCH (10:21)
--- NOTE | 2018-05-29 11:40 | PN ---
S COWS - Scale Resting Pulse: 1= [place] 81-100 Sweatin= Chills/Flushing Restless Observation: 1= Difficult to Sit Still Pupil Size: 0= Normal to Room Light Bone or Joint Aches: 2= Severe Diffuse Aches Runny Nose/ Eye Tearin= Nasal Congestion GI Upset > 30mins: 2= Nausea/Diarrhea Tremor Observation of Outstretched Hands: 2= Slight Tremor Visible Yawning Observation: 0= None Anxiety or Irritability: 2=Irritable/Anxious Goose Flesh Skin: 0=Smooth Skin COWS Score: 12 S Progress Note (SOAP) Subjective: Sweats, abdominal cramps, generalized pain Objective: 05/29/18 11:38 Vital Signs - 8 hr 05/29/18 05/29/18 08:21 09:35 Temperature 98.2 F 98.6 F Pulse Rate 83 86 Respiratory 18 18 Rate Blood Pressure 155/85 115/60 Laboratory Last Values WBC 7.7 K/mm3 (4.0-10.0) 05/28/18 07:00 RBC 4.20 M/mm3 (3.60-5.2) 05/28/18 07:00 Hgb 11.5 GM/dL (10.7-15.3) 05/28/18 07:00 Hct 36.3 % (32.4-45.2) 05/28/18 07:00 MCV 86.5 fl (80-96) 05/28/18 07:00 MCH 27.4 pg (25.7-33.7) 05/28/18 07:00 MCHC 31.7 g/dl (32.0-36.0) L 05/28/18 07:00 RDW 15.2 % (11.6-15.6) 05/28/18 07:00 Plt Count 210 K/MM3 (134-434) 05/28/18 07:00 MPV 9.6 fl (7.5-11.1) 05/28/18 07:00 Sodium 138 mmol/L (136-145) 05/28/18 07:00 Potassium 4.2 mmol/L (3.5-5.1) 05/28/18 07:00 Chloride 104 mmol/L (98-107) 05/28/18 07:00 Carbon Dioxide 30 mmol/L (21-32) 05/28/18 07:00 Anion Gap 4 MMOL/L (8-16) L 05/28/18 07:00 BUN 8 mg/dL (7-18) 05/28/18 07:00 Creatinine 0.7 mg/dL (0.55-1.3) 05/28/18 07:00 Creat Clearance w eGFR 98.93 (>60) 05/28/18 07:00 Random Glucose 85 mg/dL (74-106) 05/28/18 07:00 Calcium 8.7 mg/dL (8.5-10.1) 05/28/18 07:00 Total Bilirubin 0.3 mg/dL (0.2-1) 05/28/18 07:00 AST 11 U/L (15-37) L 05/28/18 07:00 ALT 16 U/L (13-61) 05/28/18 07:00 Alkaline Phosphatase 64 U/L (45-117) 05/28/18 07:00 Total Protein 6.8 g/dl (6.4-8.2) 05/28/18 07:00 Albumin 3.5 g/dl (3.4-5.0) 05/28/18 07:00 RPR Titer Nonreactive (NONREACTIVE) 05/28/18 07:00 Labs noted Assessment: 05/29/18 11:39 Withdrawal sx Plan: Continue detox
[2018-05-29] MEDS: cloNIDine HCL 0.1 MG TABLET PO PRN ×2 (15:16→22:36)
[2018-05-29] MEDS: clonazePAM 0.5 MG TABLET PO PRN ×2 (15:16→22:36)
[2018-05-29] MEDS: THIAMINE HCL 100 MG TABLET (FP) PO SCH (22:33)
[2018-05-29] MEDS: traZODone HCL 50 MG TABLET (FP) PO PRN (22:36)
[2018-05-30] MEDS ORDERED: METHADONE HCL 10 MG TABLET (FOR DETOX USE ONLY) PO ONE (10:00)
[2018-05-30] MEDS: PRENATAL VITAMINS W/ FOLIC ACID TABLET (FP) PO SCH (10:17)
[2018-05-30] MEDS: clonazePAM 0.5 MG TABLET PO PRN ×2 (10:19→22:41)
[2018-05-30] MEDS: hydrOXYzine PAMOATE 25 MG CAPSULE (FP) PO PRN ×2 (10:19→22:41)
--- NOTE | 2018-05-30 11:47 | PN ---
BHS Progress Note (SOAP) Subjective: feeling better little sweats Objective: 05/30/18 11:47 Vital Signs Temperature 98.6 F 05/30/18 09:51 Pulse Rate 87 05/30/18 09:51 Respiratory Rate 18 05/30/18 09:51 Blood Pressure 122/53 L 05/30/18 09:51 O2 Sat by Pulse Oximetry (%) aaox3 ambulating no acute distress Assessment: 05/30/18 11:47 mild withdrawal Plan: continue detox increase fluids d/c in am
[2018-05-30] MEDS: THIAMINE HCL 100 MG TABLET (FP) PO SCH (22:40)
[2018-05-30] MEDS: traZODone HCL 50 MG TABLET (FP) PO PRN (22:40)
[2018-05-31] MEDS ORDERED: METHADONE HCL 5 MG TABLET (FOR DETOX USE ONLY) PO ONE (06:00)
[2018-05-31 06:24] VITALS: BP 108/60; PULSE 79; TEMP 98.1
--- NOTE | 2018-05-31 08:41 | DS ---
[facility] Detox Discharge Summary Admission Date: 05/27/18 Discharge Date: 05/31/18 - History Present History: Opioid Dependence - Physical Exam Results Vital Signs: Vital Signs Temperature 98.1 F 05/31/18 06:23 Pulse Rate 79 05/31/18 06:23 Respiratory Rate 18 05/31/18 06:23 Blood Pressure 108/60 05/31/18 06:23 O2 Sat by Pulse Oximetry (%) - Treatment Hospital Course: Detox Protocol Followed, Detoxed Safely, Responded well, Discharged Condition Good, Rehab Referral Accepted - Medication Discharge Medications: Ambulatory Orders NK [No Known Home Medication] 05/27/18 - Diagnosis (1) Insomnia Current Visit: Yes Status: Chronic Qualifiers: Insomnia type: unspecified Qualified Code(s): G47.00 - Insomnia, unspecified (2) Nicotine dependence Current Visit: Yes Status: Chronic Qualifiers: Nicotine product type: cigarettes Substance use status: uncomplicated Qualified Code(s): F17.210 - Nicotine dependence, cigarettes, uncomplicated (3) Opioid dependence with withdrawal Current Visit: Yes Status: Chronic - AMA Did Patient Leave Against Medical Advice: No (pt referred to outpatient)
== END 2018-05-31 09:15 | disposition home or self-care (01) | DRG 861 ==
LOC: YASAS 11:16 → Y6N 16:54
PROVIDERS: ADMIT Surgery; ATTEND Surgery
PROC: HZ2ZZZZ Detoxification Services for Substance Abuse Treatment (ICD-10-PCS; principal; 2018-05-27)
DX: F17.210 Nicotine dependence, cigarettes, uncomplicated (principal); G47.00 Insomnia, unspecified
CPT/HCPCS: 36415; 80053; 85027; 86593; J0735

== ENCOUNTER 2018-07-02 13:57 | Inpatient (IN) | payer OTHER ==
[2018-07-02 15:48] VITALS: BMI 24.3
--- NOTE | 2018-07-02 17:44 | HP ---
COWS - Scale Resting Pulse: 0= [place] 80 or Below Sweatin=Flushed/Facial Moisture Restless Observation: 1= Difficult to Sit Still Pupil Size: 2= Moderately Dilated (Pupils = 4 mm) Bone or Joint Aches: 1= Mild Discomfort Runny Nose/ Eye Tearin= Runny Nose/Eyes GI Upset > 30mins: 1= Stomach Cramp Tremor Observation: 2= Slight Tremor Visible Yawning Observation: 0= None Anxiety or Irritability: 1=Feels Anxious/Irritable Goose Flesh Skin: 0=Smooth Skin COWS Score: 12 CIWA Score - Admission Criteria OASAS Guidelines: Admission for Medically Managed Detox: Requires at least one of the followin. CIWA greater than 12 2. Seizures within the past 24 hours 3. Delirium tremens within the past 24 hours 4. Hallucinations within the past 24 hours 5. Acute intervention needed for co occurring medical disorder 6. Acute intervention needed for co occurring psychiatric disorder 7. Severe withdrawal that cannot be handled at a lower level of care (continued vomiting, continued diarrhea, abnormal vital signs) requiring intravenous medication and/or fluids 8. Admission ROS [facility] - [facility] Chief Complaint: Here for percoset withdrawal. Allergies/Adverse Reactions: Allergies Allergy/AdvReac Type Severity Reaction Status Date / Time No Known Allergies Allergy Verified 07/02/18 15:40 History of Present Illness: Here for detox from percocets. States then want to go to rehab for 14 days. Percocets use began at age 18. Current use is 100 mg daily. denies other opioid use. States on Prescribed Valium 5 mg Po BID, as needed. - This does not show up on the [facility] or in Pharmacy records. Denies seizures, blackouts, or overdose. Discharged from detox on 05/31 and relapsed 2 days later. PMHx:(L) wrist pain. Denies other significant PMH. MHHx: Anxiety and depression. Denies thoughts of harming self or others. Patient Name: Hailey Rosario Date: 1990 Address: [address] [place], [place] [id number] [id number] Sex: Female Rx Written Rx Dispensed Drug Quantity Days Supply Prescriber Name 06/24/2018 06/24/2018 hydrocodone-acetaminophen 5-325 mg tablet 16 2 Elvi Quinonez MSN Exam Limitations: No Limitations - Ebola screening Have you traveled outside of the country in the last 21 days: No Have you had contact with anyone from an Ebola affected area: No Have you been sick,other than usual withdrawal symptoms: Yes (Denies recent mesles exposure) Do you have a fever: No - Review of Systems Constitutional: Chills, Changes in sleep (Difficulty falling asleep) EENT: reports: Blurred Vision, Nose Congestion Respiratory: reports: No Symptoms reported Cardiac: reports: No Symptoms Reported GI: reports: No Symptoms Reported, Nausea, Abdominal cramping : reports: No Symptoms Reported Musculoskeletal: reports: Joint Pain ((L) wrist and arm area x 6 months - 1 year. Encouraged to f/u w/ orthopedics upon discharge) Integumentary: reports: No Symptoms Reported Neuro: reports: No Symptoms reported Endocrine: reports: No Symptoms Reported Hematology: reports: No Symptoms Reported Psychiatric: reports: Judgement Intact, Orientated x3, Anxious, Depressed ( Denies thoughts of harming self or others.) Other Systems: Reviewed and Negative Patient History - Patient Medical History Hx Anemia: No Hx Asthma: No Hx Chronic Obstructive Pulmonary Disease (COPD): No Hx Cancer: No Hx Cardiac Disorders: No Hx Congestive Heart Failure: No Hx Hypertension: No Hx Hypercholesterolemia: No Hx Pacemaker: No HX Cerebrovascular Accident: No Hx Seizures: No Hx Diabetes: No Hx Gastrointestinal Disorders: No Hx Liver Disease: No Hx Genitourinary Disorders: No Hx Sexually Transmitted Disorders: No Hx Renal Disease (ESRD): No Hx Thyroid Disease: No Hx Human Immunodeficiency Virus (HIV): No (negative) Hx Hepatitis C: No (negative) Hx Depression: No Hx Suicide Attempt: No Hx Bipolar Disorder: No Hx Schizophrenia: No - Patient Surgical History Past Surgical History: No Hx Neurologic Surgery: No Hx Cataract Extraction: No Hx Cardiac Surgery: No Hx Lung Surgery: No Hx Breast Surgery: No Hx Breast Biopsy: No Hx Abdominal Surgery: No Hx Appendectomy: No Hx Cholecystectomy: No Hx Genitourinary Surgery: No Hx Section: No Hx Orthopedic Surgery: No Hx Hysterectomy: No Anesthesia Reaction: No - PPD History Previous Implant?: Yes Documented Results: Negative w/proof Implanted On Prior [facility] Admission?: Yes Date: 05/29/18 Results: 0mm PPD to be Administered?: No - Reproductive History Patient is a Female of Child Bearing Age (11 -55 yrs old): Yes Last Menstrual Period: 05/13/18 Patient : No - Smoking Cessation Smoking history: Current every day smoker Have you smoked in the past 12 months: Yes Aproximately how many cigarettes per day: 4 Hx Chewing Tobacco Use: No Initiated information on smoking cessation: Yes 'Breaking Loose' booklet given: 07/02/18 - Substance & Tx. History Hx Alcohol Use: No Hx Substance Use: Yes Substance Use Type: Opiates (Hydrocodone-acetaminophen 5-325 mg tablets) Hx Substance Use Treatment: Yes (detox) - Substances abused Other Other (specify): percocets Substance route: Oral Frequency: Daily Amount used: 100mg Age of first use: 18 Date of last use: 07/02/18 ( 9 am) Family Disease History - Family Disease History Family Disease History: Heart Disease: Father (POSSIBLE), Mother (UNCERTAIN) Admission Physical Exam BHS - Vital Signs Vital Signs: Vital Signs - 24 hr 07/02/18 07/02/18 15:41 16:11 Temperature 98 F 98 F Pulse Rate 78 78 Respiratory 18 18 Rate Blood Pressure 117/63 117/63 - Physical General Appearance: Yes: Nourished, Mild Distress, Tremorous, Sweating ( Increased facial moisture), Anxious HEENTM: Yes: EOMI, Hearing grossly Normal, Normocephalic, REMEA (Pupils = 4 mm), Pharynx Normal Respiratory: Yes: Lungs Clear, Normal Breath Sounds, No Respiratory Distress Neck: Yes: No masses,lesions,Nodules, Supple Breast: Yes: Breast Exam Deferred Cardiology: Yes: Regular Rhythm, Regular Rate, S1, S2 Abdominal: Yes: Non Tender, Soft, Increased Bowel Sounds Genitourinary: Yes: Within Normal Limits Back: Yes: Normal Inspection Musculoskeletal: Yes: full range of Motion, Gait Steady Extremities: Yes: Normal Capillary Refill, Normal Range of Motion, Non-Tender, Tremors (Mild tremors) 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: 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 NML intact, Fully Oriented, Alert, Motor Strength 5/5 Integumentary: Yes: Normal Color, Warm, Diaphoresis (Increased facial moisture) Lymphatic: Yes: Within Normal Limits - Diagnostic (1) Nicotine dependence Current Visit: Yes Status: Chronic Qualifiers: Nicotine product type: cigarettes Substance use status: uncomplicated Qualified Code(s): F17.210 - Nicotine dependence, cigarettes, uncomplicated (2) Opioid dependence with withdrawal Current Visit: Yes Status: Acute (3) Insomnia Current Visit: Yes Status: Chronic Qualifiers: Insomnia type: unspecified Qualified Code(s): G47.00 - Insomnia, unspecified Cleared for Admission [facility] - Detox or Rehab [facility] Level of Care: Medically Managed Detox Regimen/Protocol: Methadone Claeared for Rehab Admission: No Breathalyzer - Breathalyzer Breathalyzer: 0 Urine Drug Screen - Test Device Lot number: [id number] Expiration date: 01/30/20 - Control Is test valid?: Yes - Results Drug screen NEGATIVE: No Urine drug screen results: MOP-Opiates, OXY-Oxycodone, BZO-Benzodiazepines Inpatient Rehab Admission - Rehab Decision to Admit Inpatient rehab admission?: No
[2018-07-02] MEDS ORDERED: ACETAMINOPHEN 325 MG TABLET (FP) PO PRN ×2 (20:39)
[2018-07-02] MEDS ORDERED: MAGNESIUM HYDROX 2400MG/30ML ORAL SUSPENSION 30 ML CUP PO PRN (20:39)
[2018-07-02] MEDS ORDERED: MENTHOL/PHENOL 1 EACH UD MM PRN (20:39)
[2018-07-02] MEDS ORDERED: NICOTINE POLACRILEX 2 MG GUM BUC PRN (20:39)
[2018-07-02] MEDS ORDERED: guaiFENesin 200 MG/10 ML 10 ML UNIT-DOSE CUPS PO PRN (20:39)
[2018-07-02] MEDS ORDERED: IBUPROFEN 400 MG TABLET (FP) PO PRN (20:39)
[2018-07-02] MEDS ORDERED: PROCHLORPERAZINE MALEATE 5 MG TABLET PO PRN (20:39)
[2018-07-02] MEDS ORDERED: MAG HYDROX/AL HYDROX/SIMETH 30 ML UNIT-DOSE CUP PO PRN (20:39)
[2018-07-02] MEDS ORDERED: METHOCARBAMOL 500 MG TABLET PO PRN (20:39)
[2018-07-02] MEDS ORDERED: MAGNESIUM CITRATE 300 ML BOTTLE PO PRN (20:39)
[2018-07-02] MEDS ORDERED: BISMUTH SUBSALICYLATE 524 MG/30 ML UD PO PRN (20:39)
[2018-07-02] MEDS ORDERED: traZODone HCL 50 MG TABLET (FP) PO ONE (20:43)
[2018-07-02] MEDS ORDERED: COLLOIDAL OATMEAL 1 BAR EACH TP PRN (20:48)
[2018-07-02] MEDS ORDERED: METHADONE HCL 10 MG TABLET (FOR DETOX USE ONLY) PO ONE ×2 (22:15→23:00)
[2018-07-02] MEDS: THIAMINE HCL 100 MG TABLET (FP) PO SCH (22:40)
[2018-07-02] MEDS: clonazePAM 0.5 MG TABLET PO PRN (22:40)
[2018-07-03] MEDS ORDERED: METHADONE HCL 10 MG TABLET (FOR DETOX USE ONLY) PO ONE (10:00)
[2018-07-03 10:21] LABS: HEMATOCRIT 36.3 % (32.4-45.2); HEMOGLOBIN 11.7 GM/dL (10.7-15.3); MCH 28.2 pg (25.7-33.7); MCHC 32.3 g/dl (32.0-36.0); MEAN CELL VOLUME 87.3 fl (80-96); MEAN PLT VOLUME 9.9 fl (7.5-11.1); PLATELET COUNT 173 K/MM3 (134-434); RBC 4.16 M/mm3 (3.60-5.2); RDW 14.7 % (11.6-15.6)
[2018-07-03] MEDS: PRENATAL VITAMINS W/ FOLIC ACID TABLET (FP) PO SCH (10:28)
[2018-07-03] MEDS: clonazePAM 0.5 MG TABLET PO PRN (10:30)
[2018-07-03 11:56] LABS: ALBUMIN 3.4 g/dl (3.4-5.0); ALK PHOS 69 U/L (45-117); ANION GAP 5 MMOL/L (8-16); BILIRUBIN,TOTAL 0.4 mg/dL (0.2-1); BLOOD UREA NITROGEN 10 mg/dL (7-18); CALCIUM 8.4 mg/dL (8.5-10.1); CHLORIDE 108 mmol/L (98-107); CO2 28 mmol/L (21-32); CREATININE 0.8 mg/dL (0.55-1.3); GLUCOSE,RANDOM 93 mg/dL (74-106); POTASSIUM 4.2 mmol/L (3.5-5.1); SGOT/AST 11 U/L (15-37); SGPT/ALT 14 U/L (13-61); SODIUM 141 mmol/L (136-145); TOT PROT 6.5 g/dl (6.4-8.2)
[2018-07-03] MEDS: cloNIDine HCL 0.1 MG TABLET PO PRN ×2 (12:43→22:19)
--- NOTE | 2018-07-03 14:11 | PN ---
BHS COWS - Scale Resting Pulse: 1= [place] 81-100 Sweatin= Beads of Sweat on Face Restless Observation: 1= Difficult to Sit Still Pupil Size: 0= Normal to Room Light Bone or Joint Aches: 2= Severe Diffuse Aches Runny Nose/ Eye Tearin= None GI Upset > 30mins: 0= None Tremor Observation of Outstretched Hands: 2= Slight Tremor Visible Yawning Observation: 1= 1-2x During Session Anxiety or Irritability: 1=Feels Anxious/Irritable Goose Flesh Skin: 0=Smooth Skin COWS Score: 11 S Progress Note (SOAP) Subjective: c/o interrupted sleep, headache, and shakes. Objective: 07/03/18 14:16 Vital Signs 07/03/18 07/03/18 09:53 14:15 Temperature 97.5 F L 98.4 F Pulse Rate 82 94 H Respiratory 18 18 Rate Blood Pressure 108/66 129/57 L Vital signs noted. Assessment: 07/03/18 14:17 AOx3, no distress noted Full ROM, ambulating in the unit. withdrawal symptoms persists. Plan: Continue detox increase fluids continue to monitor for withdrawal symptoms.
--- NOTE | 2018-07-03 16:44 | CONSULT ---
[facility] Psychiatric Consult - Data Date of interview: 07/03/18 Admission source: [facility] Identifying data: This is one of several admissions to [facility] for this 27 y/ o AA female, from [place] descent,self-referred for detoxification (opiate) . Examined at [address] [place] [address]. Patient is single without children, domiciled, unemployed and supported by relatives. Substance Abuse History: patient confirms an enduring history of percocet abuse. Details in current [facility] report as follows : Smoking history: Current every day smoker. Have you smoked in the past 12 months: Yes. Aproximately how many cigarettes per day: 4. Hx Chewing Tobacco Use: No. Initiated information on smoking cessation: Yes. 'Breaking Loose' booklet given: . - Substance & Tx. History. Hx Alcohol Use: No. Hx Substance Use: Yes. Substance Use Type: Opiates (Hydrocodone-acetaminophen 5-325 mg tablets). Hx Substance Use Treatment: Yes (detox). - Substances abused. Other. Other ( specify): percocets. Substance route: Oral. Frequency: Daily. Amount used: 100mg. Age of first use: 18. Date of last use: 07/02/18 ( 9 am) Medical History: Patient endorses good physical health. Psychiatric History: Patient denies history of psychiatric hospitalizations. Diagnosed with MDD + Anxiety Disorder. Ms Rosario reports maintenance on a regimen of sertraline + clonidine + trazodone + klonopin. She sees a psychiatrist at the [facility]. Patient denies history of suicide attempts. Physical/Sexual Abuse/Trauma History: Patient denies. Additional Comment: Urine drug screen results: MOP-Opiates, OXY-Oxycodone, BZO- Benzodiazepines. Noted. Mental Status Exam - Mental Status Exam Alert and Oriented to: Time, Place, Person Cognitive Function: Good Patient Appearance: Well Groomed Mood: Nervous, Withdrawn Affect: Mood Congruent, Constricted Patient Behavior: Fatigued, Appropriate, Cooperative Speech Pattern: Clear, Appropriate Voice Loudness: Normal Thought Process: Goal Oriented Thought Disorder: Not Present Hallucinations: Denies Suicidal Ideation: Denies Homicidal Ideation: Denies Insight/Judgement: Poor Sleep: Poorly, Difficulty falling asleep Appetite: Good Gait/Station: Normal Psychiatric Findings - Problem List ([place] 1, 2,3) (1) Opioid dependence with withdrawal Current Visit: Yes Status: Acute (2) Nicotine dependence Current Visit: Yes Status: Chronic Qualifiers: Nicotine product type: cigarettes Substance use status: uncomplicated Qualified Code(s): F17.210 - Nicotine dependence, cigarettes, uncomplicated (3) Substance induced mood disorder Current Visit: Yes Status: Chronic (4) Insomnia Current Visit: Yes Status: Chronic Qualifiers: Insomnia type: unspecified Qualified Code(s): G47.00 - Insomnia, unspecified - Initial Treatment Plan Initial Treatment Plan: Psychoeducation. Sleep hygiene. NA meetings. Detoxification. Patient requested to resume only trazodone. Side effects/ benefits discussed in this session. Trazodone 100 mg po hs. Ms Rosario gave vebal consent to MD. Hernández.
[2018-07-03] MEDS: THIAMINE HCL 100 MG TABLET (FP) PO SCH (22:20)
[2018-07-03] MEDS: traZODone HCL 50 MG TABLET (FP) PO SCH (22:20)
[2018-07-04] MEDS: clonazePAM 0.5 MG TABLET PO PRN ×3 (05:34→22:10)
[2018-07-04] MEDS ORDERED: METHADONE HCL 10 MG TABLET (FOR DETOX USE ONLY) PO ONE (10:00)
[2018-07-04] MEDS: PRENATAL VITAMINS W/ FOLIC ACID TABLET (FP) PO SCH (10:29)
[2018-07-04] MEDS: cloNIDine HCL 0.1 MG TABLET PO PRN (16:48)
--- NOTE | 2018-07-04 17:16 | PN ---
BHS COWS - Scale Resting Pulse: 0= [place] 80 or Below Sweatin= Chills/Flushing Restless Observation: 1= Difficult to Sit Still Pupil Size: 0= Normal to Room Light Bone or Joint Aches: 1= Mild Discomfort Runny Nose/ Eye Tearin= Runny Nose/Eyes GI Upset > 30mins: 1= Stomach Cramp Tremor Observation of Outstretched Hands: 2= Slight Tremor Visible Yawning Observation: 0= None Anxiety or Irritability: 2=Irritable/Anxious Goose Flesh Skin: 0=Smooth Skin COWS Score: 10 BHS Progress Note (SOAP) Subjective: Sweating, chills, interrupted sleep Objective: 07/04/18 17:15 Last Vital Signs Temp Pulse Resp BP Pulse Ox 97.9 F 79 18 97/73 07/04/18 14:15 07/04/18 14:15 07/04/18 14:15 07/04/18 14:15 Laboratory Tests 07/02/18 07/03/18 07/03/18 16:15 07:45 07:45 WBC RBC Hgb Hct MCV MCH MCHC RDW Plt Count MPV Sodium 141 Potassium 4.2 Chloride 108 H Carbon Dioxide 28 Anion Gap 5 L BUN 10 Creatinine 0.8 Creat Clearance w eGFR 84.80 Random Glucose 93 Calcium 8.4 L Total Bilirubin 0.4 AST 11 L ALT 14 Alkaline Phosphatase 69 Total Protein 6.5 Albumin 3.4 POC Urine HCG, Qual Negative RPR Titer Nonreactive 07/03/18 08:00 WBC 7.0 RBC 4.16 Hgb 11.7 Hct 36.3 MCV 87.3 MCH 28.2 MCHC 32.3 RDW 14.7 Plt Count 173 MPV 9.9 Sodium Potassium Chloride Carbon Dioxide Anion Gap BUN Creatinine Creat Clearance w eGFR Random Glucose Calcium Total Bilirubin AST ALT Alkaline Phosphatase Total Protein Albumin POC Urine HCG, Qual RPR Titer Labs reviewed Assessment: 07/04/18 17:15 Withdrawal symptoms Plan: Continue detox Encouraged PO water intake
[2018-07-04] MEDS: THIAMINE HCL 100 MG TABLET (FP) PO SCH (22:09)
[2018-07-04] MEDS: traZODone HCL 50 MG TABLET (FP) PO SCH (22:09)
[2018-07-04] MEDS: MELATONIN 5 MG TABLETS PO PRN (23:45)
[2018-07-05] MEDS: PRENATAL VITAMINS W/ FOLIC ACID TABLET (FP) PO SCH (09:32)
[2018-07-05] MEDS: clonazePAM 0.5 MG TABLET PO PRN ×2 (09:34→15:36)
[2018-07-05] MEDS ORDERED: METHADONE HCL 10 MG TABLET (FOR DETOX USE ONLY) PO ONE (10:00)
--- NOTE | 2018-07-05 10:37 | PN ---
BHS COWS - Scale Resting Pulse: 0= [place] 80 or Below Sweatin= Chills/Flushing Restless Observation: 1= Difficult to Sit Still Pupil Size: 0= Normal to Room Light Bone or Joint Aches: 1= Mild Discomfort Runny Nose/ Eye Tearin= None GI Upset > 30mins: 0= None Tremor Observation of Outstretched Hands: 1= Tremor Trail, Not Seen Yawning Observation: 0= None Anxiety or Irritability: 1=Feels Anxious/Irritable Goose Flesh Skin: 0=Smooth Skin COWS Score: 5 BHS Progress Note (SOAP) Subjective: sweats interrupted sleep some body aches Objective: 07/05/18 10:35 Vital Signs Temperature 97.9 F 07/05/18 09:31 Pulse Rate 68 07/05/18 09:31 Respiratory Rate 18 07/05/18 09:31 Blood Pressure 111/58 L 07/05/18 09:31 O2 Sat by Pulse Oximetry (%) [id number] ambulating no acute distress Assessment: 07/05/18 10:37 mild withdrawal sx Plan: continue detox increase fluids d/c in am
[2018-07-05] MEDS: THIAMINE HCL 100 MG TABLET (FP) PO SCH (22:18)
[2018-07-05] MEDS: MELATONIN 5 MG TABLETS PO PRN (22:19)
[2018-07-05] MEDS: traZODone HCL 50 MG TABLET (FP) PO SCH (22:19)
[2018-07-06] MEDS ORDERED: METHADONE HCL 5 MG TABLET (FOR DETOX USE ONLY) PO ONE (06:00)
[2018-07-06 08:59] VITALS: BP 132/53; PULSE 79; TEMP 99
--- NOTE | 2018-07-06 09:34 | DS ---
[facility] Detox Discharge Summary Admission Date: 07/02/18 Discharge Date: 07/06/18 - History Present History: Opioid Dependence - Physical Exam Results Vital Signs: Vital Signs Temperature 99.0 F 07/06/18 09:14 Pulse Rate 79 07/06/18 09:14 Respiratory Rate 18 07/06/18 09:14 Blood Pressure 132/53 L 07/06/18 09:14 O2 Sat by Pulse Oximetry (%) - Treatment Hospital Course: Detox Protocol Followed, Detoxed Safely, Responded well, Discharged Condition Good, Rehab Referral Accepted - Medication Discharge Medications: Ambulatory Orders traZODone HCL [Trazodone HCl] 100 mg PO HS 07/02/18 - AMA Did Patient Leave Against Medical Advice: No (referred to [facility] rehab)
[2018-07-06] MEDS: PRENATAL VITAMINS W/ FOLIC ACID TABLET (FP) PO SCH (10:11)
== END 2018-07-06 11:35 | disposition home or self-care (01) | DRG 773 ==
LOC: YASAS 13:57 → Y6N 22:01
PROVIDERS: ADMIT Surgery; ATTEND Surgery
PROC: HZ2ZZZZ Detoxification Services for Substance Abuse Treatment (ICD-10-PCS; principal; 2018-07-02)
DX: F11.23 Opioid dependence with withdrawal (principal); F17.210 Nicotine dependence, cigarettes, uncomplicated; F19.24 Other psychoactive substance dependence with psychoactive substance-induced mood disorder; G47.00 Insomnia, unspecified
CPT/HCPCS: 36415; 80053; 81025; 85027; 86593; J0735